=== PATIENT | male | born 1965 | race African-American/Black ===

== ENCOUNTER 2018-11-06 14:09 | Inpatient (IN) | payer BC, SELFPAY ==
[2018-11-06 14:48] LABS: Hemoglobin 13.8 g/dL (14.0-18.0); Mean Corpuscular HGB CONC 33.1 g/dL (32.0-36.0); Mean Corpuscular Hemoglobin 29.6 pg (27.0-31.0); Mean Corpuscular Volume 89.6 fL (78.0-98.0); Mean Platelet Volume 8.1 fL (7.4-10.4); Platelet Count 199 thou/uL (130-400); RBC Distribution Width 11.3 % (11.5-14.5); Red Blood Cell (RBC) Count 4.66 mill/uL (4.70-6.10); White Blood Cell (WBC) Count 5.7 thou/uL (4.8-10.8)
[2018-11-06 15:01] LABS: ALT (SGPT) 16 U/L (8-55); AST (SGOT) 16 U/L (5-34); Albumin 4.1 g/dL (3.5-5.0); Alkaline Phosphatase 62 U/L (40-150); Anion Gap 8 mmol/L (10-20); BUN (Urea Nitrogen) 16 mg/dL (8.4-25.7); Bilirubin, Total 0.6 mg/dL (0.2-1.2); CK (CPK) 108 U/L (30-200); Calc. Creatinine Clearance 0 mL/min (70-130); Calcium 9.3 mg/dL (7.8-10.44); Carbon Dioxide 33 mmol/L (22-29); Chloride 101 mmol/L (98-107); Estimated GFR-MDRD 65; Globulin 3.1 g/dL (2.4-3.5); Glucose 189 mg/dL (70-105); Lipase 34 U/L (8-78); Potassium 3.7 mmol/L (3.5-5.1); Protein, Total 7.2 g/dL (6.0-8.3); Sodium 138 mmol/L (136-145)
[2018-11-06 15:06] LABS: Band 1 % (5-11); Lymphocytes 65 % (21-51); MDiff Complete? YES; Monocytes 5 % (0-10); Neutrophil 29 % (42-75); Platelet Morphology Comment Appears Adequate
--- NOTE | 2018-11-06 15:19 | RAD ---
XR Chest 1 View Portable HISTORY: Chest pain COMPARISON: None FINDINGS: The heart is enlarged. There is a left-sided AICD. No lobar consolidation, pneumothoraces, nolan pulmonary edema or large effusions are identified.
[2018-11-06] MEDS ORDERED: Aspirin Chewable 81 MG TAB ONE (17:24)
[2018-11-06] MEDS ORDERED: Nitroglycerin 2% Ointment 1 INCH/1 GM Packet ONE (17:24)
[2018-11-06 18:05] LABS: Troponin I 0.291 ng/mL (< 0.028)
[2018-11-06] MEDS ORDERED: Ondansetron PF 4 MG/2 ML Vial IVP PRN (18:33)
[2018-11-06] MEDS ORDERED: Ondansetron ODT 4 MG TAB SL PRN (18:33)
[2018-11-06] MEDS ORDERED: Acetaminophen 325 MG TAB PO PRN (18:33)
[2018-11-06 18:35] VITALS: BMI 35.6
[2018-11-06] MEDS ORDERED: Nitroglycerin 0.4 MG TAB (25 Tab Bottle) SL PRN (19:29)
[2018-11-06] MEDS ORDERED: Heparin 25,000 units/D5W 500 ML IVPB SCH (19:30)
--- NOTE | 2018-11-06 20:48 | PDOC.EVN ---
Event Note - Event Note Event Note: [id number] H&P dictated
[2018-11-06] MEDS ORDERED: Atorvastatin Calcium 40 MG TAB PO SCH (21:00)
[2018-11-06 21:08] LABS: Hemoglobin 13.4 g/dL (14.0-18.0); Platelet Count 188 thou/uL (130-400)
[2018-11-06 21:35] LABS: Troponin I 0.579 ng/mL (< 0.028)
[2018-11-06] MEDS: Nitroglycerin 2% Ointment 1 INCH/1 GM Packet TOP SCH ×2 (21:54→22:10)
[2018-11-06] MEDS: Heparin 10,000 UNITS/ 10 ML VIAL SLOW IVP SCH (22:05)
[2018-11-07] MEDS ORDERED: HumaLOG 300 UNITS/3 ML VIAL SC PRN (00:19)
[2018-11-07] MEDS ORDERED: Dextrose 5% in Water 1,000 ML IV PRN (00:20)
[2018-11-07] MEDS ORDERED: Dextrose 50% Abboject 50 ML SYRINGE IVP PRN (00:20)
--- NOTE | 2018-11-07 00:57 | HP ---
CHIEF COMPLAINT: Chest pain and shortness of breath. HISTORY OF PRESENT ILLNESS: Mr. Mayen is a 53-year-old male with past medical history of hypertension, diabetes mellitus, cardiac defibrillator placed in 2014, presented to the emergency room with chest pain, shortness of breath and diaphoresis that started 1 hour prior to arrival. Pain was in the center of the chest, pressure in nature. The patient reported that he sat down and he took Plavix, which did not alleviate his symptoms. The patient is on aspirin daily. He also takes furosemide. He had last echo back in January 2018. His ejection fraction was 25%. Initial workup in the emergency room including troponin and initial EKG, no acute findings. Repeat troponin is elevated. Currently, the patient is chest pain free. The patient is being admitted to hospital for further management. PAST MEDICAL HISTORY: 1. Cardiomyopathy with ejection fraction of 25%. 2. Diabetes mellitus, type 2. 3. Hypertension. 4. Congestive heart failure. PAST SURGICAL HISTORY: Defibrillator placed back in 2014. FAMILY HISTORY: Reviewed and noncontributory. SOCIAL HISTORY: Denies smoking, alcohol drinking, or drug abuse. HOME MEDICATIONS: Please see home medication reconciliation form for updated medications. ALLERGIES: NO KNOWN ALLERGIES. REVIEW OF SYSTEMS: Review of 14 systems negative except what is mentioned in the history of present illness. PHYSICAL EXAMINATION: GENERAL: The patient is awake, alert, does not appear to be in acute distress. VITAL SIGNS: Blood pressure 160/90, pulse is 88, respiratory rate is 16, temperature 97.9. HEAD: Normocephalic, atraumatic. NECK: Supple. No JVD. CHEST: Fair bilateral air entry. HEART: Distant heart sounds. ABDOMEN: Obese, soft. Bowel sounds present. NEUROLOGIC: Awake, alert, oriented x3. No focal deficits. PSYCHIATRIC: Normal mood. EXTREMITIES: No clubbing, or cyanosis. LABORATORY DATA: EKG showed sinus rhythm at a rate of 84 with left atrial enlargement, left ventricular hypertrophy. Labs, hemoglobin 13.8, platelets 199, WBC 5.7, glucose 189, BUN 16, creatinine 1.1. Troponin, initial troponin 0.012, repeat troponin 0.29. Chest x-ray shows enlarged heart with a left-sided AICD, no acute findings. ASSESSMENT AND PLAN: Mr. Mayen is a 53-year-old male with history of cardiomyopathy, diabetes mellitus, congestive heart failure, cardiac defibrillator, presenting to the emergency room with chest pain and shortness of breath, second troponin is elevated. 1. Non ST elevation myocardial infarction. 2. Cardiomyopathy. 3. Cardiac defibrillator. 4. Diabetes. 5. Hypertension. PLAN: 1. Admit. 2. Tele monitoring. 3. Aspirin. 4. We will start the patient on IV heparin drip. 5. Plavix, statin. 6. Keep the patient n.p.o. after midnight. 7. Consult Cardiology for evaluation and further management. 8. Reconcile home medications. 9. Deep venous thrombosis prophylaxis. The patient is currently on IV heparin drip. 10. Expected length of stay is 2 midnights or more. Job ID: [id number]
[2018-11-07 02:31] LABS: Cardiac Risk 4.5 (Less than 4.5)
[2018-11-07] MEDS: Heparin 10,000 UNITS/ 10 ML VIAL SLOW IVP SCH (05:20)
[2018-11-07] MEDS ORDERED: Clopidogrel Bisulfate 75 MG TAB PO SCH (09:00)
[2018-11-07] MEDS ORDERED: Aspirin 325 mg Enteric Coated Tablet PO SCH (09:00)
[2018-11-07 12:00] LABS: PTT 117.8 SEC (22.9-36.1)
[2018-11-07 12:12] VITALS: TEMP 98.6
[2018-11-07] MEDS ORDERED: Losartan 25 MG TAB PO SCH (12:15)
[2018-11-07] MEDS ORDERED: Enoxaparin Sodium 100 MG/ML SYRINGE SC SCH (12:30)
[2018-11-07] MEDS ORDERED: Carvedilol 25 MG TAB PO SCH (12:30)
[2018-11-07] MEDS ORDERED: Enoxaparin Sodium 40 MG/0.4 ML SYRINGE SC SCH (12:30)
[2018-11-07] MEDS ORDERED: Potassium Chloride 20 MEQ TAB PO SCH (12:30)
[2018-11-07] MEDS ORDERED: Spironolactone 25 MG TAB PO SCH (12:30)
[2018-11-07] MEDS ORDERED: Furosemide 20 MG/2 ML VIAL SLOW IVP SCH (12:30)
[2018-11-07 13:23] LABS: Troponin I 3.054 ng/mL (< 0.028)
[2018-11-07 14:08] VITALS: BP 138/83
--- NOTE | 2018-11-07 14:37 | CON ---
DATE OF CONSULTATION: 11/07/2018 REASON FOR CONSULTATION: Cardiomyopathy, increased troponin, and burning in the chest. HISTORY OF PRESENT ILLNESS: Mr. Deep Mayen is a pleasant 53-year-old gentleman. He is on a job here. He normally lives in [place]. We did receive some records today. The patient was diagnosed with a cardiomyopathy and underwent cardiac catheterization in 2012. He had no obstructive coronary artery disease at that time. The patient underwent a single-chamber defibrillator implantation in 2014. The patient states that he was up for working. He had a burning in his chest. He came here to the emergency room and was kept for observation. The patient is pain-free now. The patient did not know what medicines he was taking. He had a small pill bottle, but without the names. Therefore, he did not receive his medicine this morning. He did not take any of the medicines yesterday. Medications, we have received a list today includes; 1. Amlodipine 2.5 mg a day. 2. Aspirin 81 mg a day. 3. Atorvastatin 20 mg a day. 4. Carvedilol 37.5 mg twice a day. 5. Furosemide 40 mg twice a day. 6. Losartan 50 mg twice a day. 7. Meloxicam. 8. Metformin. 9. Spironolactone. The patient brings a bottle of medicines that are not labeled. They are in the common bottle, but it is not labelled what he is actually taking. The patient is not really sure. REVIEW OF SYSTEMS: CONSTITUTIONAL: No significant weight gain or loss. HEENT: Vision, no changes. Hearing, no changes. PULMONARY: No cough or wheezing. GASTROINTESTINAL: No nausea, vomiting, or diarrhea. SKIN: No rashes. NEUROLOGIC: No unilateral weakness or numbness. PSYCHIATRIC: No unusual depression or anxiety. ALLERGIES: NONE KNOWN. PHYSICAL EXAMINATION: GENERAL: This is a pleasant, large statured gentleman. The entered weight is not correct. This is an gentleman, who is alert and oriented. VITAL SIGNS: Blood pressure is 184/113 and pulse 84. HEENT: Eyes, sclerae are nonicteric. Mouth, mucous membranes moist. NECK: Supple. No lymphadenopathy. LUNGS: Clear. No wheezing, rales, or rhonchi. CARDIAC: Normal S1. Normal S2. There is no murmur, rub, or gallop. ABDOMEN: Obese and nontender. No hepatosplenomegaly. EXTREMITIES: Warm and dry. No clubbing or cyanosis. There is mild peripheral edema. He has good femoral pulses. The pedal pulses are somewhat diminished. PERTINENT LABORATORY: Troponin level 0.010 to 0.291 to 0.579. LDL cholesterol was 110. EKG sinus rhythm, some nonspecific T-wave changes. Chest x-ray showed cardiomegaly. To my interpretation, it looks like there was probably mild vascular congestion but no nolan edema. Has defibrillator to a single-chamber device. He has had the OptiVol levels, were not elevated. ASSESSMENT AND PLAN: 1. Cardiomyopathy. 2. Diabetes. 3. Hypercholesterolemia. 4. Hypertension uncontrolled. 5. Non-ST elevation myocardial infarction. Peak troponin 0.579. Most likely this is type 2 demand ischemia, but there certainly is a possibility of could not develop coronary artery disease. I discussed the possibility of adjusting his medicines and considering repeat catheterization, he declines that. He indicates he wishes to leave as soon as possible. We will give the patient a dose of Lovenox. We will try to get his blood pressure down. It is not clear to me how much longer he will stay in the hospital. We did advised him to spend the night, but it does not appear to be. He is likely to do that. We will try to optimize his situation as well as possible. He plans on following up with his physicians as soon as possible. Job ID: [id number] Addendum: Repeat troponin over 3. Pt had MO, likely type 1. He was advised to stay in the hospital for further evaluation. He declined and left against advice. DENIZ
--- NOTE | 2018-11-07 15:02 | PDOC.HOSPP ---
- Subjective Encounter Date: 11/07/18 Encounter Time: 15:00 Subjective: Mr. Mayen was seen today in follow-up of acute coronary syndrome. Mr. Aadme says he feels better today. He does not have any complaints. He plans to leave against medical advise. - Objective Vital Signs & Weight: Vital Signs (12 hours) Temp Pulse Resp BP Pulse Ox 11/07/18 14:07 83 138/83 11/07/18 11:31 98.6 F 83 20 178/107 H 95 11/07/18 07:22 98.4 F 84 20 184/113 H 95 11/07/18 04:47 97.5 F L 80 21 H 177/109 H 94 L Weight Weight 264 lb I&O: 11/06/18 11/07/18 11/08/18 06:59 06:59 06:59 Intake Total 421.5 Balance 421.5 Result Diagrams: 11/06/18 20:58 11/06/18 14:25 Additional Labs: Accuchecks 11/07/18 11/07/18 11:33 05:36 POC Glucose 184 H 205 H Hospitalist ROS - Medication Medications: Active Medications Generic Name Dose Route Start Last Admin Trade Name Freq PRN Reason Stop Dose Admin Aspirin 325 mg 11/07/18 09:00 11/07/18 09:48 Ecotrin PO 325 mg DAILY JAYJAY Administration Atorvastatin Calcium 40 mg 11/06/18 21:00 11/06/18 21:55 Lipitor PO 40 mg HS JAYJAY Administration Clopidogrel Bisulfate 75 mg 11/07/18 09:00 11/07/18 09:48 Plavix PO 75 mg DAILY JAYJAY Administration Heparin Sodium (Porcine) 0 units 11/06/18 19:30 11/07/18 05:20 Heparin 1,000 Units/Ml (10 Ml) SLOW IVP 3,570 unit ASDIR JAYJAY Administration Protocol - Exam Eye: PERRL Heart: RRR, no murmur, no gallops, no rubs, normal peripheral pulses Respiratory: CTAB, no wheezes, no rales, no ronchi, normal chest expansion, no tachypnea, normal percussion Gastrointestinal: soft, non-tender, non-distended, normal bowel sounds, no palpable masses, no hepatomegaly Extremities: no cyanosis, no clubbing Hosp A/P (1) Acute coronary syndrome Code(s): I24.9 - ACUTE ISCHEMIC HEART DISEASE, UNSPECIFIED Status: Acute (2) Hypertension Code(s): I10 - ESSENTIAL (PRIMARY) HYPERTENSION Status: Acute (3) Diabetes mellitus type 2 in nonobese Code(s): E11.9 - TYPE 2 DIABETES MELLITUS WITHOUT COMPLICATIONS Status: Chronic - Plan * Acute coronary syndrome- patient plans to leave AMA
--- NOTE | 2018-11-08 00:45 | DIS ---
DATE OF ADMISSION: 11/06/2018 DATE OF DISCHARGE: 11/07/2018 PRIMARY CARE PHYSICIAN: Out of town. DISCHARGE DIAGNOSES: 1. Chest pain and non ST-elevation myocardial infarction type 2. 2. History of cardiomyopathy. 3. Hypertension. 4. Coronary artery disease. 5. Diabetes mellitus, type 2. DISCHARGE MEDICATIONS: The patient will likely continue his home medications includin. Metformin 1000 mg twice daily. 2. Meloxicam 7.5 mg daily. 3. Losartan 50 mg twice a day. 4. Lasix 40 mg twice daily. 5. Carvedilol 12.5 mg 3 tablets twice a day. 6. Atorvastatin 20 mg at bedtime. 7. Aspirin 81 mg daily. 8. Amlodipine 2.5 mg twice daily. 9. Tylenol No. 3 as needed. CODE STATUS: Full code. ALLERGIES: NO KNOWN DRUG ALLERGIES. HOSPITAL COURSE: Mr. Mayen is a 53-year-old gentleman, who presented to the emergency room with complaints of chest pain and shortness of breath. He was placed in observation and started on aspirin and nitrates. Continue his beta patria and also started on heparin drip. His troponins were being trended and began to trend up. Cardiology was consulted and his troponin peaked at 3.054. The plan was to do further evaluation, possibly cardiac catheterization. However, the patient decided to leave against medical advice. He understood the dangers. I went and personally talked to him as well as the animal control licensing worker and explained the potential for worsening heart failure and even as a result of fatal [place]. He said he understood the risks. He said he is just out of his medications and had not taken them and believes this is the reason this episode happened and plans to see his private animal control licensing worker in [place] and plans to leave here and do that himself. Job ID: [id number]
[2018-11-08] MEDS ORDERED: Spironolactone 25 MG TAB PO SCH (08:00)
== END 2018-11-07 15:56 | disposition left against medical advice (07) | DRG 281 ==
LOC: ERS 14:09 → 2SW 17:32 → OBSVTOIN 17:32
PROVIDERS: ADMIT Internal Medicine; ATTEND Internal Medicine
DX: I21.A1 Myocardial infarction type 2 (principal); I42.9 Cardiomyopathy, unspecified; E11.9 Type 2 diabetes mellitus without complications; I50.9 Heart failure, unspecified; I11.0 Hypertensive heart disease with heart failure; E78.00 Pure hypercholesterolemia, unspecified; Z53.21 Procedure and treatment not carried out due to patient leaving prior to being seen by health care provider; Z95.810 Presence of automatic (implantable) cardiac defibrillator
CPT/HCPCS: 36415; 36416; 71045; 80053; 80061; 82550; 83690; 84484; 85025; 85730; 93005; 94760; J1644; J1650; J1940